=== PATIENT | male | born 1980 | race Caucasian/White ===

== ENCOUNTER → 2018-02-08 07:16 | Outpatient (CLI) | payer OTHER | END | disposition home or self-care (01) | LOC: D.MRI 07:16 | DX: M54.16 Radiculopathy, lumbar region (principal) ==

== ENCOUNTER 2018-04-07 07:18 | Day surgery (SDC) | payer OTHER ==
[~2018-04-07] VITALS: Ht 193 cm; Wt 124.7 kg
--- NOTE | ~2018-04-07 | OP ---
PATIENT NAME: NOHELIA GUTIERREZ MEDICAL RECORD: [id number] :82 LOCATION:[facility] ADMISSION DATE: SURGEON: LUCIA MARTINEZ MD DATE OF OPERATION: 04/07/2018 PREOPERATIVE DIAGNOSES: Disc herniation at L5-S1 right with right S1 radiculopathy. POSTOPERATIVE DIAGNOSES: Disc herniation at L5-S1 right with right S1 radiculopathy. PROCEDURES: Lumbar laminotomy, medial facetectomy, and foraminotomy at L5-S1 right with discectomy with METRx retractor. PRIMARY CARE DOCTOR: Julio Darby MD SURGEON: Lucia Martinez MD DESCRIPTION AND TECHNIQUE: After induction of general endotracheal anesthesia, the patient was rolled prone on Jeevan frame. Lumbar spine was prepped and draped in usual sterile fashion. Fluoroscopic x-ray and a spinal needle localized the L5-S1 interspace on the right side. A 1:100,000 epinephrine and 1% lidocaine was infiltrated in the soft tissues. A stab incision was created with #11 blade and series of dilators were used to advance a METRx retractor to the L5-S1 interspace on the right side. Level was confirmed with fluoroscopic x-ray. A microscope and Midas Johnson drill were used to perform laminotomy, medial facetectomy, and foraminotomy L5-S1 on the right. A microscope and Midas Johnson drill were used to perform a laminotomy, medial facetectomy and foraminotomy L5-S1 on the right. Hypertrophied ligamentum flavum was removed with Cloward rongeurs. Following this, there is an obvious disc herniation at L5-S1 on the right, compressing the right S1 nerve root. The annulus was incised. Disc material was removed from the disc space as well as the axilla until the nerve root was completely free of compression. Meticulous hemostasis was maintained throughout. The wound was irrigated with copious amounts of Ancef irrigant solution. The retractor was removed and the fascia was closed with 2-0 Vicryl suture. The skin was closed with joseph. A sterile dressing was applied to the wound. The patient was awakened in good condition and taken to recovery. All counts were reported as correct. Estimated blood loss was minimal. TRANSINT:[id number] Voice Confirmation ID: [id number] DOCUMENT ID: [id number] LUCIA MARTINEZ MD at 0951 CC: [id number] DICTATION DATE: 04/07/18 1712 CARE TEAM ASSISTANT: 04/07/18 2153 [facility] 04/07/18 [id number] [place] [address]
[2018-04-07 07:11] VITALS: BP 154/103; Ht 193 cm; Wt 124.7 kg
[~2018-04-07 07:18] MED LIST: IBUPROFEN800 MG PO; NIASPAN500 MG PO; NORCO 10-325 TA1 TAB PO
== END 2018-04-07 16:05 | disposition home or self-care (01) ==
LOC: D.OPS 07:18 → D.PAN 09:30 → D.OPS 10:45 → D.PAN 10:45 → D.OPS 16:05
DX: M51.17 Intervertebral disc disorders with radiculopathy, lumbosacral region (principal); Z01.812 Encounter for preprocedural laboratory examination